=== PATIENT | female | born 1975 | race Caucasian/White ===

== ENCOUNTER → 2016-03-29 | Outpatient (REF) | payer OTHER ==
[~2016-03-29] MED LIST: /PRAV20TA PO; /ZIAC5TA PO; BUSP10TA PO; CELE20TA PO; FLUTISP; IBUP200T2 PO; IBUPPOW25 PO; PAXI40TA2 PO; VICO5TAB PO; ZANT150T PO
== END ==
LOC: M LAB REF 16:29
PROVIDERS: ATTEND Internal Medicine
DX: R53.83 Other fatigue (principal); R06.02 Shortness of breath

== ENCOUNTER → 2016-04-16 | Outpatient (CLI) | payer OTHER ==
[~2016-04-16] MED LIST changes: +METHACHOLINE KIT (J7674) INH ONE
--- NOTE | 2016-04-16 17:29 | PFTRPT ---
METHACHOLINE CHALLENGE INTERPRETATION: Excellent technical quality. Under protocol, methacholine was administered. At a dose of 10 mg/ml (63.875 CDUs), a 26% decline in the FEV1 was noted. The PC20 of 6.14 does meet criteria for a positive study. Flow rates returned to baseline post bronchodilator administration. IMPRESSION: Positive methacholine challenge study. MTDD
== END ==
LOC: M CARPUL 16:45
PROVIDERS: ATTEND Internal Medicine
DX: R06.02 Shortness of breath (principal)

== ENCOUNTER → 2017-04-09 | Outpatient (REF) | payer OTHER ==
[2017-04-09 16:22] LABS: BASO % 0.6 % (0.0-1.0); EOS # 0.1 10^3/uL (0.0-0.50); EOS % 0.9 % (0.0-3.0); HEMATOCRIT 39.5 % (36.0-47.0); HEMOGLOBIN 13.1 g/dl (12.0-16.0); IMMATURE GRANULOCYTE % 0.3 % (0-3.0); LYMPH # 2.1 10^3/uL (1.5-4.5); LYMPH % 31.5 % (24.0-44.0); MEAN CORPUSCULAR HEMOGLOBIN 30.2 pg (27.0-33.0); MEAN CORPUSCULAR HGB CONC 33.2 g/dl (32.0-36.5); MONO # 0.4 10^3/uL (0.0-0.8); MONO % 5.9 % (0.0-5.0); NEUTROPHILS # 4.1 10^3/uL (1.8-7.7); NEUTROPHILS % 60.8 % (36.0-66.0); PLATELET COUNT, AUTOMATED 298 10^3/uL (150-450); RED BLOOD COUNT 4.34 10^6/uL (4.00-5.40); RED CELL DISTRIBUTION WIDTH 12.5 % (11.5-14.5); WHITE BLOOD COUNT 6.7 10^3/uL (4.0-10.0)
[2017-04-09 16:28] LABS: ALBUMIN 3.9 GM/DL (3.2-5.2); ALBUMIN/GLOBULIN RATIO 1.11 (1.00-1.93); ALKALINE PHOSPHATASE 111 U/L (45-117); ALT/SGPT 27 U/L (12-78); ANION GAP 7 MEQ/L (8-16); AST/SGOT 27 U/L (7-37); BILIRUBIN,TOTAL 0.4 MG/DL (0.2-1.0); BLOOD UREA NITROGEN 10 MG/DL (7-18); CALCIUM LEVEL 8.8 MG/DL (8.5-10.1); CARBON DIOXIDE LEVEL 27 MEQ/L (21-32); CHLORIDE LEVEL 107 MEQ/L (98-107); CREATININE FOR GFR 0.81 MG/DL (0.55-1.30); GLOMERULAR FILTRATION RATE > 60.0 (>58); GLUCOSE, FASTING 115 MG/DL (70-100); POTASSIUM SERUM 4.1 MEQ/L (3.5-5.1); SODIUM LEVEL 141 MEQ/L (136-145); TOTAL PROTEIN 7.4 GM/DL (6.4-8.2)
== END ==
LOC: M LAB REF 15:45
DX: G50.0 Trigeminal neuralgia (principal)

== ENCOUNTER → 2017-05-09 | Outpatient (REF) | payer OTHER ==
[2017-05-09 16:35] LABS: ANION GAP 6 MEQ/L (8-16); BLOOD UREA NITROGEN 11 MG/DL (7-18); CALCIUM LEVEL 8.7 MG/DL (8.5-10.1); CARBON DIOXIDE LEVEL 28 MEQ/L (21-32); CHLORIDE LEVEL 106 MEQ/L (98-107); CREATININE FOR GFR 0.74 MG/DL (0.55-1.30); GLOMERULAR FILTRATION RATE > 60.0 (>58); GLUCOSE, FASTING 121 MG/DL (70-100); POTASSIUM SERUM 4.4 MEQ/L (3.5-5.1); SODIUM LEVEL 140 MEQ/L (136-145)
[2017-05-12 10:27] LABS: OXCARBAZEPINE 26 ug/mL (10-35)
== END ==
LOC: M LABDRAW1 14:25
DX: G50.0 Trigeminal neuralgia (principal)

== ENCOUNTER → 2017-07-17 | Outpatient (REF) | payer OTHER ==
[2017-07-17 17:16] LABS: BASO # 0.1 10^3/uL (0.0-0.2); BASO % 0.9 % (0.0-1.0); EOS # 0.1 10^3/uL (0.0-0.50); EOS % 1.6 % (0.0-3.0); HEMATOCRIT 38.3 % (36.0-47.0); HEMOGLOBIN 12.8 g/dl (12.0-15.5); IMMATURE GRANULOCYTE % 0.2 % (0-3.0); LYMPH # 1.7 10^3/uL (1.5-4.5); LYMPH % 27.2 % (24.0-44.0); MEAN CORPUSCULAR HEMOGLOBIN 30.8 pg (27.0-33.0); MEAN CORPUSCULAR HGB CONC 33.4 g/dl (32.0-36.5); MEAN CORPUSCULAR VOLUME 92.1 fl (80.0-96.0); MONO # 0.4 10^3/uL (0.0-0.8); MONO % 5.5 % (0.0-5.0); NEUTROPHILS # 4.1 10^3/uL (1.8-7.7); NEUTROPHILS % 64.6 % (36.0-66.0); PLATELET COUNT, AUTOMATED 296 10^3/uL (150-450); RED BLOOD COUNT 4.16 10^6/uL (4.00-5.40); RED CELL DISTRIBUTION WIDTH 11.9 % (11.5-14.5); WHITE BLOOD COUNT 6.4 10^3/uL (4.0-10.0)
[2017-07-17 17:17] LABS: ANION GAP 5 MEQ/L (8-16); BLOOD UREA NITROGEN 7 MG/DL (7-18); CALCIUM LEVEL 8.5 MG/DL (8.5-10.1); CARBON DIOXIDE LEVEL 30 MEQ/L (21-32); CHLORIDE LEVEL 105 MEQ/L (98-107); CREATININE FOR GFR 0.73 MG/DL (0.55-1.30); GLOMERULAR FILTRATION RATE > 60.0 (>58); GLUCOSE, FASTING 93 MG/DL (70-100); POTASSIUM SERUM 4.4 MEQ/L (3.5-5.1); SODIUM LEVEL 140 MEQ/L (136-145)
[2017-07-21 00:06] LABS: OXCARBAZEPINE 29 ug/mL (10-35)
== END ==
LOC: M LABDRAW1 16:01
DX: G50.0 Trigeminal neuralgia (principal)

== ENCOUNTER 2017-12-11 10:26 | Day surgery (SDC) | payer OTHER ==
[~2017-12-11 10:26] MED LIST changes: -/PRAV20TA PO; -/ZIAC5TA PO; -BUSP10TA PO; -CELE20TA PO; +CLINDAMYCIN 600 MG in APPROPRIATE DILUENT 1 EA IV; -FLUTISP; -IBUP200T2 PO; -IBUPPOW25 PO; -METHACHOLINE KIT (J7674) INH ONE; -PAXI40TA2 PO; -VICO5TAB PO; -ZANT150T PO
[2017-12-11] MEDS: fentaNYL 100 MCG/2 ML INJECTION (J3010) IV (10:45)
[2017-12-11] MEDS: NS 1,000 ML IV (12:20)
[2017-12-11] MEDS: MORPHINE 4 MG/ML 1ML VIAL/SYRINGE (J2270) IV ×3 (12:48→15:32)
[2017-12-11] MEDS ORDERED: MORPHINE 4 MG/ML 1ML VIAL/SYRINGE (J2270) As Ordered ×2 (14:13→15:31)
[2017-12-11 14:24] LABS: BASO # 0.1 10^3/uL (0.0-0.2); BASO % 1.2 % (0.0-1.0); EOS # 0.1 10^3/uL (0.0-0.50); EOS % 1.5 % (0.0-3.0); HEMATOCRIT 37.6 % (36.0-47.0); HEMOGLOBIN 12.8 g/dl (12.0-15.5); IMMATURE GRANULOCYTE % 0.3 % (0-3.0); LYMPH # 1.7 10^3/uL (1.5-4.5); LYMPH % 29.5 % (24.0-44.0); MEAN CORPUSCULAR HEMOGLOBIN 30.9 pg (27.0-33.0); MEAN CORPUSCULAR VOLUME 90.8 fl (80.0-96.0); MONO # 0.4 10^3/uL (0.0-0.8); MONO % 6.3 % (0.0-5.0); NEUTROPHILS # 3.6 10^3/uL (1.8-7.7); NEUTROPHILS % 61.2 % (36.0-66.0); PLATELET COUNT, AUTOMATED 304 10^3/uL (150-450); RED BLOOD COUNT 4.14 10^6/uL (4.00-5.40); WHITE BLOOD COUNT 5.8 10^3/uL (4.0-10.0)
[2017-12-11] MEDS ORDERED: ceFAZolin 1GM INJ (J0690 PER 500MG) As Ordered (14:24)
[2017-12-11] MEDS ORDERED: PHENYLephrine HCL 500 MCG/5 ML (100MCG/ML) SYRINGE (J2370) As Ordered (16:56)
[2017-12-11] MEDS ORDERED: ONDANSETRON 4MG/2ML VIAL (J2405) As Ordered ×2 (16:56→21:47)
[2017-12-11] MEDS ORDERED: PROPOFOL 500 MG/50 ML VIAL As Ordered (16:56)
[2017-12-11] MEDS ORDERED: LIDOCAINE 2% INJ 100 MG/5 ML SDV (FOR ANES.) As Ordered (16:56)
[2017-12-11] MEDS ORDERED: dexameTHASONE 4 MG/ML 1ML VIAL (J1100) As Ordered (16:56)
[2017-12-11] MEDS ORDERED: fentaNYL 100 MCG/2 ML INJECTION (J3010) As Ordered (16:56)
[2017-12-11] MEDS ORDERED: MIDAZOLAM INJ 2 MG/2 ML VIAL (J2250) As Ordered (16:57)
[2017-12-11] MEDS ORDERED: BUPIVACAINE/DEXTROSE 0.75% 2 ML AMP As Ordered (17:04)
[2017-12-11] MEDS ORDERED: CLINDAMYCIN 600 MG/50 ML PREMIX BAG As Ordered (17:51)
[2017-12-11] MEDS: BUPIVACAINE/EPIN 0.25% 30 ML VIAL As Ordered (20:30)
[2017-12-11] MEDS ORDERED: PROPOFOL 200 MG/20 ML VIAL As Ordered ×2 (20:47→20:50)
[2017-12-11] MEDS: clonazePAM 1 MG TAB PO (21:00)
[2017-12-11] MEDS ORDERED: PERCOCET 5MG/325MG TAB As Ordered (21:47)
[2017-12-11] MEDS: PERCOCET 5MG/325MG TAB PO ×2 (21:55→22:17)
[2017-12-11] MEDS: ONDANSETRON 4MG/2ML VIAL (J2405) IV (21:56)
[2017-12-11] MEDS: LR 1,000 ML IV (22:00)
[2017-12-11] MEDS ORDERED: fentaNYL 100 MCG/2 ML INJECTION (J3010) IV (22:00)
[2017-12-11] MEDS: METOCLOPRAMIDE INJ 10MG/2ML VIAL (J2765) IV (22:10)
[2017-12-11] MEDS ORDERED: PERCOCET 5MG/325MG TAB PO (22:30)
[2017-12-11] MEDS: OXcarbazepine 300 MG TAB PO (23:41)
[2017-12-11] MEDS: AMITRIPTYLINE 50 MG TAB PO (23:41)
[2017-12-11] MEDS: PREGABALIN 75 MG CAP(LYRICA) PO (23:41)
[2017-12-12] MEDS: D5W/LR 1,000 ML IV (00:18)
[2017-12-12] MEDS: CLINDAMYCIN 600 MG in APPROPRIATE DILUENT 1 EA IV (00:19)
[2017-12-12] MEDS: HYDROMORPHONE HCL 0.5 MG/ 0.5 ML SYRINGE (J1170 PER 1) IV (00:49)
[2017-12-12] MEDS: BACLOFEN 10 MG TAB PO (03:35)
[2017-12-12] MEDS: ATENOLOL 25 MG TAB PO (03:35)
[2017-12-12] MEDS: PERCOCET 5MG/325MG TAB PO ×2 (03:51→09:02)
[2017-12-12] MEDS: METAMUCIL (PSYLLIUM) PACKET PO (09:00)
[2017-12-12] MEDS: OXcarbazepine 150 MG TAB PO (09:02)
[2017-12-12] MEDS: PREGABALIN 75 MG CAP(LYRICA) PO (09:02)
[2017-12-12] MEDS: clonazePAM 1 MG TAB PO (09:02)
[2017-12-12] MEDS: ASPIRIN 325 MG TAB GT (09:02)
== END 2017-12-12 12:40 | disposition home or self-care (01) ==
LOC: M SDC 12-12 12:40 → M ED 10:26 → M SDC 12:50 → M MS5PR 22:30
DX: S82.451A Displaced comminuted fracture of shaft of right fibula, initial encounter for closed fracture (principal); S93.04XA Dislocation of right ankle joint, initial encounter; G35 Multiple sclerosis; I10 Essential (primary) hypertension; J45.909 Unspecified asthma, uncomplicated; E78.5 Hyperlipidemia, unspecified; K21.9 Gastro-esophageal reflux disease without esophagitis; E66.9 Obesity, unspecified; Z68.41 Body mass index [BMI] 40.0-44.9, adult; R51 Headache; M26.609 Unspecified temporomandibular joint disorder, unspecified side; Z88.1 Allergy status to other antibiotic agents; Z88.8 Allergy status to other drugs, medicaments and biological substances; Z79.899 Other long term (current) drug therapy; Z98.51 Tubal ligation status; W10.9XXA Fall (on) (from) unspecified stairs and steps, initial encounter; Y93.89 Activity, other specified; Y92.89 Other specified places as the place of occurrence of the external cause; Y99.8 Other external cause status
CPT/HCPCS: 27826

== ENCOUNTER 2017-12-29 12:15 | Day surgery (SDC) | payer OTHER ==
[2017-12-29] MEDS ORDERED: CLINDAMYCIN 600 MG/50 ML PREMIX BAG As Ordered (17:21)
[2017-12-29] MEDS: CLINDAMYCIN 900 MG in APPROPRIATE DILUENT 1 EA IV (17:27)
[2017-12-29] MEDS ORDERED: LIDOCAINE 2% INJ 100 MG/5 ML SDV (FOR ANES.) As Ordered (17:33)
[2017-12-29] MEDS ORDERED: ONDANSETRON 4MG/2ML VIAL (J2405) As Ordered (17:33)
[2017-12-29] MEDS ORDERED: MIDAZOLAM INJ 2 MG/2 ML VIAL (J2250) As Ordered (17:33)
[2017-12-29] MEDS ORDERED: ROCURONIUM BROMIDE 50 MG/5 ML VIAL As Ordered (17:33)
[2017-12-29] MEDS ORDERED: fentaNYL 100 MCG/2 ML INJECTION (J3010) As Ordered (17:33)
[2017-12-29] MEDS ORDERED: dexameTHASONE 4 MG/ML 1ML VIAL (J1100) As Ordered (17:33)
[2017-12-29] MEDS ORDERED: PROPOFOL 200 MG/20 ML VIAL As Ordered ×2 (17:33)
[2017-12-29] MEDS ORDERED: HYDROmorphone HCL 2 MG/ML 1ML VIAL (J1170) As Ordered (17:40)
[2017-12-29] MEDS: CLINDAMYCIN 600 MG/50 ML PREMIX BAG As Ordered (18:17)
[2017-12-29] MEDS: VANCOMYCIN HCL 500 MG/10 ML VIAL (J3370) As Ordered (18:17)
[2017-12-29] MEDS: BUPIVACAINE/EPIN 0.25% 30 ML VIAL As Ordered (18:19)
[2017-12-29] MEDS ORDERED: fentaNYL 100 MCG/2 ML INJECTION (J3010) IV (19:15)
[2017-12-29] MEDS: LR 1,000 ML IV (19:15)
[2017-12-29] MEDS ORDERED: METOCLOPRAMIDE INJ 10MG/2ML VIAL (J2765) IV (19:15)
[2017-12-29] MEDS ORDERED: PERCOCET 5MG/325MG TAB PO ×2 (19:15)
[2017-12-29] MEDS ORDERED: PROMETHAZINE INJ 25 MG/ML VIAL (J2550) IV (19:15)
[2017-12-29] MEDS: PERCOCET 5MG/325MG TAB PO (19:51)
[2017-12-29] MEDS: ONDANSETRON 4MG/2ML VIAL (J2405) IV (19:51)
[2017-12-29] MEDS ORDERED: AMITRIPTYLINE 10 MG TAB PO (21:00)
[2017-12-29] MEDS: D5W/LR 1,000 ML IV (22:09)
[2017-12-29] MEDS: AMITRIPTYLINE 50 MG TAB PO (22:10)
[2017-12-29] MEDS: PREGABALIN 75 MG CAP(LYRICA) PO (22:10)
[2017-12-29] MEDS: MORPHINE 4 MG/ML 1ML VIAL/SYRINGE (J2270) IV (22:11)
[2017-12-30 00:39] LABS: BEDSIDE GLUCOSE 148 MG/DL (70-105)
[2017-12-30] MEDS: PERCOCET 5MG/325MG TAB PO ×3 (01:41→10:28)
[2017-12-30] MEDS: PARoxetine 20 MG TAB PO (10:28)
[2017-12-30] MEDS: PANTOPRAZOLE 40MG TAB (PROTONIX) PO (10:28)
[2017-12-30] MEDS: PREGABALIN 75 MG CAP(LYRICA) PO (10:29)
== END 2017-12-30 10:55 | disposition home or self-care (01) ==
LOC: M SDC 12-30 10:55 → M MS5PR 21:18
DX: T84.218A Breakdown (mechanical) of internal fixation device of other bones, initial encounter (principal); I10 Essential (primary) hypertension; E78.5 Hyperlipidemia, unspecified; G47.30 Sleep apnea, unspecified; J45.909 Unspecified asthma, uncomplicated; E66.9 Obesity, unspecified; Z79.82 Long term (current) use of aspirin; Z79.899 Other long term (current) drug therapy; Z88.8 Allergy status to other drugs, medicaments and biological substances
CPT/HCPCS: 27829

== ENCOUNTER → 2018-07-23 | Outpatient (CLI) | payer OTHER ==
[~2018-07-23] MED LIST changes: +AMIT100TA PO; +ASPI-1 PO; +ATEN25TA PO; +BACL1TAB8 PO; +BREO1INH3 INH; +BUSP10TA PO; +CELE20TA PO; -CLINDAMYCIN 600 MG in APPROPRIATE DILUENT 1 EA IV; +CLON1TAB8 PO; +FLUT1SPR2; +IBUP200T2 PO; +IBUPPOW25 PO; +LYRI150C PO; +OXCA150T21 PO; +OXCA600T8 PO; +PANT40TA3 PO; +PARO40TA3 PO; +PAXI40TA10 PO; +PERC5TAB12 PO; +PRAV1TAB39 PO; +RIZA10TA2 PO; +VICO5TAB PO; +VITA200038 PO; +ZANT150T PO; +ZIAC1TAB PO
--- NOTE | 2018-07-25 00:25 | ECGEPIP ---
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 Order Number: [id number] Reading MD: Vincent Carmona Measurements Intervals [place] Rate: 88 P: 10 [place]: 173 QRS: 3 QRSD: 101 T: QT: 354 QTc: 430 Interpretive Statements SINUS RHYTHM POSSIBLE LEFT ATRIAL ENLARGEMENT Left ventricular hypertrophy by aVL criteria ST DEVIATION AND MODERATE T-WAVE ABNORMALITY, CONSIDER ANTEROLATERAL ISCHEMIA Similar to tracing done 12-29-17 Electronically Signed on 07-25-2018 0:25:17 EDT by Vincent Carmona
== END ==
LOC: M EKG 09:35
PROVIDERS: ATTEND Orthopaedic Surgery
DX: S82.61XD Displaced fracture of lateral malleolus of right fibula, subsequent encounter for closed fracture with routine healing (principal); S93.04XD Dislocation of right ankle joint, subsequent encounter; W18.30XD Fall on same level, unspecified, subsequent encounter; Y92.009 Unspecified place in unspecified non-institutional (private) residence as the place of occurrence of the external cause

== ENCOUNTER 2018-12-22 05:44 | Emergency (ER) | payer OTHER ==
[~2018-12-22] VITALS: Ht 165.1 cm; Wt 109.1 kg
[2018-12-22] MEDS ORDERED: LOSA25TA14 PO (05:59)
[2018-12-22 06:44] LABS: INR 1.05; PARTIAL THROMBOPLASTIN TIME 28.5 SECONDS (25.0-38.4); PROTHROMBIN TIME 13.4 SECONDS (11.8-14.0)
[2018-12-22] MEDS ORDERED: NS 1,000 ML IV ONE ×2 (06:45→08:00)
[2018-12-22 06:48] LABS: BASO # 0.1 10^3/uL (0.0-0.2); BASO % 1.6 % (0.0-1.0); EOS # 0.1 10^3/uL (0.0-0.5); EOS % 1.1 % (0.0-3.0); HEMATOCRIT 40.8 % (36.0-47.0); HEMOGLOBIN 13.5 g/dl (12.0-15.5); LYMPH # 2.4 10^3/uL (1.5-5.0); MEAN CORPUSCULAR HEMOGLOBIN 29.7 pg (27.0-33.0); MEAN CORPUSCULAR HGB CONC 33.1 g/dl (32.0-36.5); MEAN CORPUSCULAR VOLUME 89.7 fl (80.0-96.0); MONO # 0.4 10^3/uL (0.0-0.8); MONO % 4.9 % (0.0-5.0); NEUTROPHILS # 4.6 10^3/uL (1.5-8.5); NEUTROPHILS % 60.1 % (36.0-66.0); PLATELET COUNT, AUTOMATED 300 10^3/uL (150-450); RED BLOOD COUNT 4.55 10^6/uL (4.00-5.40); WHITE BLOOD COUNT 7.6 10^3/uL (4.0-10.0)
--- NOTE | 2018-12-22 06:57 | REPVR ---
PROCEDURE INFORMATION: Exam: CT Head Without Contrast Exam date and time: 12/22/2018 6:32 AM Clinical history: 43 years old, female; Dizziness; Prior surgery; Surgery date: 1-6 months; Patient HX: Trigem neuralgia; Additional info: Weakness TECHNIQUE: Imaging protocol: Computed tomography of the head without contrast. Radiation optimization: All CT scans at this facility use at least one of these dose optimization techniques: automated exposure control; mA and/or kV adjustment per patient size (includes targeted exams where dose is matched to clinical indication); or iterative reconstruction. COMPARISON: No relevant prior studies available. FINDINGS: There are no intra-or extra-axial hemorrhages or fluid collections. There is no mass effect or midline shift. Ventricles are symmetrical and nondilated for age. There are no focal parenchymal abnormalities. No calvarial fractures. Previous bilateral occipital craniectomies with cranioplasties. IMPRESSION: No acute intracranial process. No intracranial hemorrhage. Postsurgical changes as described above. Electronically signed by: Malcom Almeida On 12/22/2018 06:56:44 AM
[2018-12-22 07:03] LABS: BLOOD UREA NITROGEN 10 MG/DL (7-18); CALCIUM LEVEL 9.1 MG/DL (8.5-10.1); CARBON DIOXIDE LEVEL 25 MEQ/L (21-32); CHLORIDE LEVEL 108 MEQ/L (98-107); CK-MB VALUE MASS < 1.0 NG/ML (<3.6); CPK CREATINE PHOSPHOKINASE 51 U/L (26-192); CREATININE FOR GFR 0.94 MG/DL (0.55-1.30); FREE THYROXINE INDEX 2.7 % (1.3-4.8); GLOMERULAR FILTRATION RATE > 60.0 (>58); GLUCOSE, FASTING 131 MG/DL (70-100); MB/CK RELATIVE INDEX 1.96 (< OR =4); POTASSIUM SERUM 3.9 MEQ/L (3.5-5.1); SODIUM LEVEL 140 MEQ/L (136-145); T UPTAKE 28 % (30-39); THYROXINE (T4) 9.6 UG/DL (4.5-12.0); TROPONIN I < 0.02 NG/ML (< 0.10)
[2018-12-22] MEDS ORDERED: PROMETHAZINE INJ 25 MG/ML VIAL (J2550) IV ONE (08:00)
[2018-12-22] MEDS ORDERED: ISOVUE-370 76% 100ML VIAL (Q9967) As Ordered ONE (08:00)
[2018-12-22] MEDS ORDERED: MECLIZINE 25 MG TABLET PO ONE (08:00)
--- NOTE | 2018-12-22 09:03 | REP ---
CT pulmonary angiogram: With IV contrast. History: Leg pain, tachycardia, orthostatic. Rule out pulmonary embolus. Comparison studies: No comparison CT study. Contrast dose: 75 ML of Isovue [address] technique: Helical scanning is acquired and overlapping 1.5 mm and contiguous 3 mm axial images are reformatted. In addition, maximum intensity projection and multiplanar re-formation images are generated in sagittal and coronal imaging projections. CT pulmonary angiographic findings: There is good opacification of the pulmonary arterial tree. Preliminary digital sinker puller radiograph is unremarkable. There is no filling defect or vessel cutoff to suggest pulmonary embolus in the pulmonary arterial tree. The thoracic aorta enhances homogeneously without evidence of aneurysm or dissection. Maximum intensity projection images show no abnormality of the pulmonary arterial tree. There is marked diffuse fatty infiltration of the liver. The liver appears prominent in size as well. No adrenal lesion is seen. The visualized upper abdominal structures are unremarkable. There is no evidence of pleural or pericardial effusion. No hilar or mediastinal mass or adenopathy is observed. On lung window settings, there is mild plate-like atelectasis in the lingular segment of the left upper lobe. No infiltrate or pulmonary nodule or mass lesion is visible. No bony destructive lesion is seen. Impression: No CT evidence of pulmonary embolus. Marked diffuse fatty infiltration of the liver. Prominent liver size. Otherwise no acute disease. Electronically Signed by Steven Evans MD 12/22/2018 09:28 A
[2018-12-22] MEDS ORDERED: KETOROLAC 30 MG/ML VIAL (J1885) IV ONE (09:30)
[2018-12-22] MEDS ORDERED: METOCLOPRAMIDE INJ 10MG/2ML VIAL (J2765) IV ONE (10:30)
[2018-12-22] MEDS ORDERED: ACETAMINOPHEN 500 MG TAB PO ONE (10:30)
[2018-12-22] MEDS ORDERED: REGL5TAB2 PO (10:51)
[2018-12-22] MEDS ORDERED: MECL-86 PO (10:51)
[2018-12-22 11:30] VITALS: BP 158/88
--- NOTE | 2018-12-22 23:16 | ECGEPIP ---
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
== END 2018-12-22 11:43 | disposition home or self-care (01) ==
LOC: M ED 05:44
DX: I95.1 Orthostatic hypotension (principal); I10 Essential (primary) hypertension; J45.909 Unspecified asthma, uncomplicated; F33.9 Major depressive disorder, recurrent, unspecified; F41.9 Anxiety disorder, unspecified; K21.9 Gastro-esophageal reflux disease without esophagitis; E66.9 Obesity, unspecified; Z79.899 Other long term (current) drug therapy; Z88.1 Allergy status to other antibiotic agents; Z88.8 Allergy status to other drugs, medicaments and biological substances
CPT/HCPCS: 70450; 71275; 80048; 82550; 82553; 84436; 84443; 84479; 85025; 85610; 85730; 93005; 99285; J1885; J2765; Q9967

== ENCOUNTER → 2019-04-02 | Outpatient (CLI) | payer OTHER ==
[~2019-04-02] MED LIST changes: +LOSA25TA14 PO; +MECL-86 PO; +REGL5TAB2 PO
--- NOTE | 2019-04-02 10:30 | REPVR ---
PROCEDURE INFORMATION: Exam: CT Head Without Contrast Exam date and time: 04/02/2019 9:58 AM Age: 44 years old Clinical indication: Pain; Additional info: Trigeminal neuralgia of RT side of face TECHNIQUE: Imaging protocol: Computed tomography of the head without contrast. Radiation optimization: All CT scans at this facility use at least one of these dose optimization techniques: automated exposure control; mA and/or kV adjustment per patient size (includes targeted exams where dose is matched to clinical indication); or iterative reconstruction. COMPARISON: CT Head without contrast 12/22/2018 6:41 AM FINDINGS: Brain: Normal. No hemorrhage. Unremarkable white matter. No mass effect. Ventricles: Normal. No ventriculomegaly. Bones/joints: There are bilateral suboccipital craniectomy changes with flap. Sinuses: Visualized sinuses are unremarkable. No fluid levels. Mastoid air cells: Visualized mastoid air cells are well aerated. Soft tissues: Unremarkable. IMPRESSION: No acute hemorrhage or edema. Electronically signed by: Aleisha Winston On 04/02/2019 10:29:51 AM
== END ==
LOC: M RAD 09:42
PROVIDERS: ATTEND Nurse Practitioner
DX: G50.0 Trigeminal neuralgia (principal)

== ENCOUNTER → 2019-04-22 | Outpatient (REF) | payer OTHER ==
[2019-04-22 13:58] LABS: HEMOGLOBIN A1c 5.5 %
== END ==
LOC: M LABDRAW1 11:20
PROVIDERS: ATTEND Surgery
DX: Z86.39 Personal history of other endocrine, nutritional and metabolic disease (principal)

== ENCOUNTER → 2020-04-11 | Outpatient (CLI) | payer OTHER ==
[~2020-04-11] MED LIST changes: +PANT40TA29 PO; -PANT40TA3 PO
--- NOTE | 2020-04-11 19:41 | ECGEPIP ---
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
== END ==
LOC: M EKG 10:42
PROVIDERS: ATTEND Orthopaedic Surgery
DX: Z01.810 Encounter for preprocedural cardiovascular examination (principal)

== ENCOUNTER → 2020-08-20 | Outpatient (CLI) | payer OTHER ==
--- NOTE | 2020-08-21 16:14 | SLEEPCENT ---
NOCTURNAL POLYSOMNOGRAPHY DATE: 08/20/2020 ORDERED BY: JERMAINE Vincent Nocturnal polysomnography was performed for evaluation of sleep physiology in this patient with a history of excessive somnolence and nonrestorative sleep,. 8 hours and 14 minutes of data were reviewed. There were 425 minutes of sleep identified. Sleep latency was mildly prolonged at 47 minutes. REM latency was normal at 106 minutes. Sleep architecture was good with three REM cycles. Overall sleep efficiency was 87%. The electrocardiogram showed a sinus rhythm with an average heart rate of 80 beats per minute; rate range 60 to 90. EEG showed essentially normal waveforms for wake and sleep. There were only 12 respiratory events identified of 10 seconds in duration or greater for an apnea-hypopnea index of 1.7. The events were primarily hypopneic with two mixed and central apneas. Events were not exclusive to sleep stage. Snoring was noted and respiratory related arousals occurred 0.4 times per hour. There was minimal activity in the limb leads. IMPRESSION: Normal nocturnal polysomnography with snoring.
== END ==
LOC: M SLEEP 20:00
PROVIDERS: ATTEND Nurse Practitioner Family
DX: R40.0 Somnolence (principal); R06.83 Snoring

== ENCOUNTER → 2021-04-24 | Outpatient (REF) | payer OTHER ==
[~2021-04-24] MED LIST changes: +LOSA25TA13 PO; -LOSA25TA14 PO
[2021-04-24 20:14] LABS: FOLATE > 24.0 NG/ML; TOTAL 25(OH) VITAMIN D 32.6 NG/ML (30.0-100.0); VITAMIN B12 LEVEL 1387 PG/ML
[2021-04-24 20:30] LABS: FERRITIN 28 NG/ML (8-252)
== END ==
LOC: M LAB REF 12:08
PROVIDERS: ATTEND Internal Medicine
DX: Z98.84 Bariatric surgery status (principal)

== ENCOUNTER → 2021-11-19 | Outpatient (REF) | payer OTHER ==
[2021-11-19 17:32] LABS: TOTAL 25(OH) VITAMIN D 37.8 NG/ML (30.0-100.0); VITAMIN B12 LEVEL > 2000 PG/ML (247-911)
== END ==
LOC: M LAB REF 16:11
PROVIDERS: ATTEND Internal Medicine
DX: R53.83 Other fatigue (principal)

== ENCOUNTER 2022-01-04 11:29 | Emergency (ER) | payer OTHER ==
[~2022-01-04] VITALS: Ht 162.6 cm; Wt 76.4 kg
[2022-01-04 11:30] VITALS: BP 136/91
[2022-01-04] MEDS ORDERED: UBRO100T (11:45)
[2022-01-04] MEDS ORDERED: VITA200016 (11:45)
[2022-01-04] MEDS ORDERED: AIMO70IN2 (11:45)
[2022-01-04] MEDS ORDERED: SERTRALINE (11:45)
[2022-01-04] MEDS ORDERED: TRAZ1TAB14 (11:45)
[2022-01-04] MEDS ORDERED: NORCO, ANEXSIA 5/325MG TABLET (HYDROcodone/ACETAMINOPHEN) PO ONE (14:15)
[2022-01-04] MEDS ORDERED: HYDR-3713 PO (15:15)
== END 2022-01-04 15:47 | disposition home or self-care (01) ==
LOC: M ED 11:29
DX: S30.0XXA Contusion of lower back and pelvis, initial encounter (principal); W10.8XXA Fall (on) (from) other stairs and steps, initial encounter; Y92.009 Unspecified place in unspecified non-institutional (private) residence as the place of occurrence of the external cause; I10 Essential (primary) hypertension; G50.0 Trigeminal neuralgia; Z90.710 Acquired absence of both cervix and uterus; Z88.8 Allergy status to other drugs, medicaments and biological substances; Z79.899 Other long term (current) drug therapy

== ENCOUNTER 2022-01-07 10:48 | Emergency (ER) | payer OTHER ==
[~2022-01-07] VITALS: Ht 165.1 cm; Wt 79.5 kg
[~2022-01-07 10:48] MED LIST changes: +AIMO70IN2; +HYDR-3713 PO; +SERTRALINE; +TRAZ1TAB14; +UBRO100T; +VITA200016
[2022-01-07] MEDS ORDERED: NORCO, ANEXSIA 5/325MG TABLET (HYDROcodone/ACETAMINOPHEN) PO ONE (14:15)
[2022-01-07 15:03] LABS: BASO % 0.6 % (0.0-1.0); EOS # 0.1 10^3/uL (0.0-0.5); EOS % 1.6 % (0.0-3.0); HEMATOCRIT 38.2 % (36.0-47.0); HEMOGLOBIN 12.3 g/dl (12.0-15.5); LYMPH # 1.4 10^3/uL (1.5-5.0); LYMPH % 27.6 % (24.0-44.0); MEAN CORPUSCULAR HEMOGLOBIN 32.2 pg (27.0-33.0); MEAN CORPUSCULAR HGB CONC 32.2 g/dl (32.0-36.5); MONO # 0.4 10^3/uL (0.0-0.8); MONO % 7.5 % (2.0-8.0); NEUTROPHILS # 3.1 10^3/uL (1.5-8.5); NEUTROPHILS % 62.3 % (36.0-66.0); PLATELET COUNT, AUTOMATED 303 10^3/uL (150-450); RED BLOOD COUNT 3.82 10^6/uL (4.00-5.40)
[2022-01-07 15:14] LABS: INR 0.92; PROTHROMBIN TIME 12.5 SECONDS (12.5-14.5)
[2022-01-07 15:15] LABS: PARTIAL THROMBOPLASTIN TIME 26.1 SECONDS (24.8-34.2)
[2022-01-07 15:54] VITALS: BP 126/80
== END 2022-01-07 15:55 | disposition home or self-care (01) ==
LOC: M ED 10:48
DX: S30.0XXS Contusion of lower back and pelvis, sequela (principal); W19.XXXS Unspecified fall, sequela; I10 Essential (primary) hypertension; E78.5 Hyperlipidemia, unspecified; R51.9 Headache, unspecified; J45.909 Unspecified asthma, uncomplicated; K21.9 Gastro-esophageal reflux disease without esophagitis; F41.9 Anxiety disorder, unspecified; F32.9 Major depressive disorder, single episode, unspecified; Z79.899 Other long term (current) drug therapy; Z88.8 Allergy status to other drugs, medicaments and biological substances

== ENCOUNTER → 2022-01-16 | Outpatient (CLI) | payer OTHER | LOC: M RAD 11:33 | PROVIDERS: ATTEND Internal Medicine | DX: R10.2 Pelvic and perineal pain (principal) ==

== ENCOUNTER → 2022-01-21 | Outpatient (REF) | payer OTHER ==
[~2022-01-21] MED LIST changes: -PAXI40TA10 PO; +PAXI40TA12 PO
[2022-01-21 12:28] LABS: INR 0.9; PROTHROMBIN TIME 12.3 SECONDS (12.5-14.5)
[2022-01-21 12:29] LABS: PARTIAL THROMBOPLASTIN TIME 26.3 SECONDS (24.8-34.2)
== END ==
LOC: M LAB REF 12:15
PROVIDERS: ATTEND Internal Medicine
DX: Z01.818 Encounter for other preprocedural examination (principal); M79.81 Nontraumatic hematoma of soft tissue

== ENCOUNTER → 2022-01-30 | Outpatient (CLI) | payer OTHER ==
[~2022-01-30] MED LIST changes: +LIDOCAINE 1% MDV 20ML VIAL As Ordered ONE
[2022-01-30 10:00] VITALS: BP 139/84
== END ==
LOC: M IRPRO 09:00
PROVIDERS: ATTEND Internal Medicine
DX: S37.8 Injury of other urinary and pelvic organs (principal)

== ENCOUNTER → 2022-06-11 | Outpatient (REF) | payer OTHER ==
[~2022-06-11] MED LIST changes: -LIDOCAINE 1% MDV 20ML VIAL As Ordered ONE
[2022-06-11 13:08] LABS: VITAMIN B12 LEVEL 344 PG/ML (211-911)
[2022-06-11 13:10] LABS: FOLATE > 24.0 NG/ML (>5.4)
== END ==
LOC: M LAB REF 12:22
PROVIDERS: ATTEND Physician Assistant Medical
DX: Z98.84 Bariatric surgery status (principal)

== ENCOUNTER → 2022-09-09 | Outpatient (CLI) | payer OTHER | LOC: M RAD 10:26 | PROVIDERS: ATTEND Surgery | DX: G89.11 Acute pain due to trauma (principal) ==

== ENCOUNTER 2022-09-29 00:09 | Emergency (ER) | payer OTHER ==
[~2022-09-29] VITALS: Ht 165.1 cm; Wt 84.0 kg
[2022-09-29 00:11] VITALS: BP 123/87; TEMP 98.4; O2SAT 100
[2022-09-29] MEDS ORDERED: LIDOCAINE 2% MDV 20ML VIAL SC ONE (02:20)
== END 2022-09-29 03:27 | disposition home or self-care (01) ==
LOC: M ED 00:09
DX: S01.81XA Laceration without foreign body of other part of head, initial encounter (principal); S40.012A Contusion of left shoulder, initial encounter; S05.12XA Contusion of eyeball and orbital tissues, left eye, initial encounter; W10.8XXA Fall (on) (from) other stairs and steps, initial encounter; Y92.009 Unspecified place in unspecified non-institutional (private) residence as the place of occurrence of the external cause; Y93.01 Activity, walking, marching and hiking; Y99.8 Other external cause status; I10 Essential (primary) hypertension; E78.5 Hyperlipidemia, unspecified; R51.9 Headache, unspecified; K21.9 Gastro-esophageal reflux disease without esophagitis; F41.9 Anxiety disorder, unspecified; F32.A Depression, unspecified; Z98.84 Bariatric surgery status; Z88.1 Allergy status to other antibiotic agents; Z88.8 Allergy status to other drugs, medicaments and biological substances; Z79.899 Other long term (current) drug therapy

== ENCOUNTER → 2022-12-17 | Outpatient (CLI) | payer OTHER | LOC: M RAD 14:38 | PROVIDERS: ATTEND Psychiatry & Neurology Neurology | DX: R20.2 Paresthesia of skin (principal); M51.16 Intervertebral disc disorders with radiculopathy, lumbar region; M48.061 Spinal stenosis, lumbar region without neurogenic claudication; M46.96 Unspecified inflammatory spondylopathy, lumbar region ==

== ENCOUNTER → 2023-06-23 | Outpatient (REF) | payer OTHER ==
[2023-06-23 14:02] LABS: FOLATE > 24.0 NG/ML (>5.4)
[2023-06-23 14:03] LABS: FERRITIN 77.2 NG/ML (7.3-270.7)
[2023-06-23 14:04] LABS: LUTEINIZING HORMONE 16.5 mIU/ML
[2023-06-23 14:05] LABS: FOLLICLE STIMULATING HORMONE 24.1 mIU/ML; VITAMIN B12 LEVEL 1156 PG/ML (211-911)
== END ==
LOC: M LAB REF 11:54
PROVIDERS: ATTEND Internal Medicine
DX: Z98.84 Bariatric surgery status (principal); N91.2 Amenorrhea, unspecified

== ENCOUNTER 2023-11-19 12:56 | Emergency (ER) | payer OTHER ==
[~2023-11-19] VITALS: Ht 165.1 cm; Wt 83.7 kg
[2023-11-19 17:02] LABS: BASO % 0.3 % (0.0-1.0); EOS % 0.3 % (0.0-3.0); HEMATOCRIT 44.4 % (36.0-47.0); HEMOGLOBIN 15.2 g/dl (12.0-15.5); LYMPH # 0.7 10^3/uL (1.5-5.0); LYMPH % 7.2 % (24.0-44.0); MEAN CORPUSCULAR HEMOGLOBIN 32.1 pg (27.0-33.0); MEAN CORPUSCULAR HGB CONC 34.2 g/dl (32.0-36.5); MEAN CORPUSCULAR VOLUME 93.7 fl (80.0-96.0); MONO # 0.6 10^3/uL (0.0-0.8); MONO % 6.5 % (2.0-8.0); NEUTROPHILS # 8.5 10^3/uL (1.5-8.5); NEUTROPHILS % 85.2 % (36.0-66.0); PLATELET COUNT, AUTOMATED 212 10^3/uL (150-450); RED BLOOD COUNT 4.74 10^6/uL (4.00-5.40); WHITE BLOOD COUNT 9.9 10^3/uL (4.0-10.0)
[2023-11-19 17:08] LABS: ERYTHROCYTE SEDIMENTATION RATE 71 mm/hr (0-20)
[2023-11-19] MEDS: ACETAMINOPHEN *IV* 1,000 MG in IV 1 EA IV ONE (17:15)
[2023-11-19 19:15] LABS: RSV AMPLIFICATION NEGATIVE (NEGATIVE)
[2023-11-19] MEDS ORDERED: TEGR200T PO (19:38)
[2023-11-19] MEDS ORDERED: PRED20TA PO (19:38)
[2023-11-19] MEDS: predniSONE 20 MG TAB PO ONE (19:47)
[2023-11-19] MEDS: carBAMazepine 100MG *1/2* TABLET PO ONE (20:17)
[2023-11-19 20:23] VITALS: BP 123/73; TEMP 96.9; O2SAT 97
== END 2023-11-19 20:23 | disposition home or self-care (01) ==
LOC: M ED 12:56
DX: G50.0 Trigeminal neuralgia (principal); R70.0 Elevated erythrocyte sedimentation rate; R79.82 Elevated C-reactive protein (CRP); I10 Essential (primary) hypertension; E78.5 Hyperlipidemia, unspecified; J45.909 Unspecified asthma, uncomplicated; K21.9 Gastro-esophageal reflux disease without esophagitis; G35 Multiple sclerosis; Z88.8 Allergy status to other drugs, medicaments and biological substances; Z79.1 Long term (current) use of non-steroidal anti-inflammatories (NSAID); Z79.2 Long term (current) use of antibiotics; Z79.52 Long term (current) use of systemic steroids; Z79.899 Other long term (current) drug therapy
CPT/HCPCS: 80047; 85025; 85652; 86140; 87631; 96374; 99284; J0131; J7512

== ENCOUNTER → 2024-01-26 | Outpatient (CLI) | payer OTHER ==
[~2024-01-26] MED LIST changes: +PRED20TA PO; +PROHANCE 279.3MG/ML 15ML VIAL ONE; +TEGR200T PO
== END ==
LOC: M PLAIMG 15:18
PROVIDERS: ATTEND Plastic Surgery Surgery of the Hand
DX: S30.0XXD Contusion of lower back and pelvis, subsequent encounter (principal); D17.1 Benign lipomatous neoplasm of skin and subcutaneous tissue of trunk; L90.5 Scar conditions and fibrosis of skin
CPT/HCPCS: 72197; A9576

== ENCOUNTER → 2024-05-08 | Outpatient (REF) | payer OTHER ==
[~2024-05-08] MED LIST changes: +AMIT25TA19 PO; +B-12100010 PO; +BACL10TA2 PO; +BOTO10VL IM; +BREO1INH; +CALC250T PO; +CARB1TAB20 PO; +DULO1CAP5 PO; +LEVA45AE; +MULTTAB61 PO; +PREG150C2 PO; -PROHANCE 279.3MG/ML 15ML VIAL ONE; -TRAZ1TAB14; +TRAZ1TAB14 PO; -UBRO100T; +UBRO100T PO; -VITA200016; +VITA200016 PO; +ZOLO100T PO
== END ==
LOC: M LAB REF 19:56
PROVIDERS: ATTEND Physician Assistant Medical
DX: N39.0 Urinary tract infection, site not specified (principal)

== ENCOUNTER → 2024-05-12 | Outpatient (CLI) | payer OTHER ==
[2024-05-12 19:05] LABS: ALBUMIN 3.1 G/DL (3.2-5.2); ALKALINE PHOSPHATASE 126 U/L (35-104); ALT/SGPT 56 U/L (7.0-40); AST/SGOT 36 U/L (<34); BILIRUBIN,TOTAL 0.3 MG/DL (0.3-1.2); BLOOD UREA NITROGEN 12 MG/DL (9-23); CALCIUM LEVEL 8.8 MG/DL (8.5-10.1); CARBON DIOXIDE LEVEL 27 MMOL/L (20-31); CHLORIDE LEVEL 99 MMOL/L (98-107); CREATININE FOR GFR 0.76 MG/DL (0.55-1.30); GLOMERULAR FILTRATION RATE > 60.0 (>51); GLUCOSE, FASTING 109 MG/DL (60-100); POTASSIUM SERUM 3.9 MMOL/L (3.5-5.1); SODIUM LEVEL 133 MMOL/L (136-145); TOTAL PROTEIN 6.8 G/DL (5.7-8.2)
== END ==
LOC: M WUC 14:57
PROVIDERS: ATTEND Nurse Practitioner Family
DX: G50.0 Trigeminal neuralgia (principal)

== ENCOUNTER → 2024-05-12 | Outpatient (CLI) | payer OTHER | LOC: M WUC 14:52 | PROVIDERS: ATTEND Physician Assistant | DX: Z01.818 Encounter for other preprocedural examination (principal); L90.5 Scar conditions and fibrosis of skin; D17.1 Benign lipomatous neoplasm of skin and subcutaneous tissue of trunk ==

== ENCOUNTER 2024-05-18 06:00 | Day surgery (SDC) | payer OTHER ==
[~2024-05-18] VITALS: Ht 165.1 cm; Wt 76.2 kg
[2024-05-18] MEDS ORDERED: NITR100C2 (06:37)
[2024-05-18] MEDS ORDERED: GNPTAB37 PO (06:37)
[2024-05-18] MEDS ORDERED: MIDAZOLAM INJ 2MG/2ML VIAL As Ordered ONE (07:20)
[2024-05-18] MEDS ORDERED: fentaNYL 100 MCG/2 ML INJECTION As Ordered ONE (07:21)
[2024-05-18] MEDS ORDERED: propofoL 200 MG/20 ML VIAL As Ordered ONE (07:22)
[2024-05-18] MEDS ORDERED: ROCURONIUM BROMIDE 50MG/5ML VIAL As Ordered ONE (07:22)
[2024-05-18] MEDS ORDERED: LIDOCAINE 2% 100MG/5ML SDV (FOR ANES.) As Ordered ONE (07:22)
[2024-05-18] MEDS: LR 1,000 ML IV SCH (07:27)
[2024-05-18] MEDS: CLINDAMYCIN 900 MG in IV 1 EA IV ONE (07:55)
[2024-05-18] MEDS ORDERED: ACETAMINOPHEN 1000MG/100ML IV BAG As Ordered ONE (08:07)
[2024-05-18] MEDS ORDERED: SUGAMMADEX SODIUM 500 MG/5 ML VIAL (BRIDION) As Ordered ONE (08:10)
[2024-05-18] MEDS ORDERED: ONDANSETRON 4MG 2ML VIAL As Ordered ONE (08:10)
[2024-05-18] MEDS: BUPivacaine LIPOSOME/PF 266MG 20ML VIAL (13.3MG/ML)(EXPAREL) As Ordered ONE (08:30)
[2024-05-18] MEDS ORDERED: PHENYLephrine 500MCG 5ML (100MCG/ML) SYRINGE As Ordered ONE (08:33)
[2024-05-18] MEDS ORDERED: fentaNYL 100 MCG/2 ML INJECTION IV PRN (09:15)
[2024-05-18] MEDS ORDERED: ONDANSETRON 4MG 2ML VIAL IV PRN (09:15)
[2024-05-18] MEDS ORDERED: LR 1,000 ML IV SCH (09:15)
[2024-05-18] MEDS ORDERED: HYDROMORPHONE HCL 0.5 MG/ 0.5 ML SYRINGE IV PRN (09:15)
[2024-05-18] MEDS: oxyCODONE 5MG TAB PO PRN (09:42)
[2024-05-18 10:40] VITALS: BP 121/68; TEMP 96.2; O2SAT 98
== END 2024-05-18 10:50 | disposition home or self-care (01) ==
LOC: M SDC 06:00
PROVIDERS: ATTEND Plastic Surgery Surgery of the Hand
DX: L90.5 Scar conditions and fibrosis of skin (principal); S30.0XXS Contusion of lower back and pelvis, sequela; W19.XXXS Unspecified fall, sequela; Z88.1 Allergy status to other antibiotic agents; Z88.8 Allergy status to other drugs, medicaments and biological substances; Z79.899 Other long term (current) drug therapy; F17.290 Nicotine dependence, other tobacco product, uncomplicated
CPT/HCPCS: 11406; 12034; 88302; J0131; J0665; J0666; J0737; J1100; J2250; J2371; J2405; J3010

== ENCOUNTER → 2024-06-12 | Outpatient (REF) | payer OTHER ==
[~2024-06-12] MED LIST changes: +GNPTAB37 PO; +NITR100C2
== END ==
LOC: M LAB REF 08:52
PROVIDERS: ATTEND Student in an Organized Health Care Education/Training Program
DX: R30.0 Dysuria (principal)

== ENCOUNTER → 2024-06-23 | Outpatient (REF) | payer OTHER ==
[2024-06-23 15:15] LABS: FERRITIN 168.8 NG/ML (7.3-270.7)
[2024-06-23 15:16] LABS: FOLATE 16.7 NG/ML (>5.4)
== END ==
LOC: M LAB REF 12:29
PROVIDERS: ATTEND Internal Medicine
DX: Z98.84 Bariatric surgery status (principal)

== ENCOUNTER → 2024-06-30 | Outpatient (CLI) | payer OTHER | LOC: M PLAIMG 09:11 | PROVIDERS: ATTEND Physical Medicine & Rehabilitation | DX: M48.02 Spinal stenosis, cervical region (principal); M51.26 Other intervertebral disc displacement, lumbar region; M47.816 Spondylosis without myelopathy or radiculopathy, lumbar region ==

== ENCOUNTER → 2024-06-30 | Outpatient (CLI) | payer OTHER | LOC: M PLALAB 10:05 | PROVIDERS: ATTEND Physical Medicine & Rehabilitation | DX: M51.362 Other intervertebral disc degeneration, lumbar region with discogenic back pain and lower extremity pain (principal) ==

== ENCOUNTER → 2024-08-22 | Outpatient (REF) | payer OTHER | LOC: M LAB REF 18:24 | PROVIDERS: ATTEND Registered Nurse | DX: N39.0 Urinary tract infection, site not specified (principal) ==

== ENCOUNTER → 2024-10-19 | Outpatient (REF) | payer OTHER ==
[~2024-10-19] MED LIST changes: +CARB-19 PO; -CARB1TAB20 PO
== END ==
LOC: M LAB REF 17:14
PROVIDERS: ATTEND Nurse Practitioner Family
DX: R30.0 Dysuria (principal)